=== PATIENT | female | born 1995 | race Hispanic/Latino ===

== ENCOUNTER 2017-03-09 17:38 | Emergency (ER) | payer BC ==
[2017-03-09 18:17] LABS: Bilirubin Negative (Negative); Blood, Urine Small (Negative); Glucose, Urine (Dipstick) Negative (Negative); Ketone, Urine Negative (Negative); Nitrite Negative (Negative); Protein, Urine (Dipstick) Negative (Neg-Trace)
[2017-03-09 18:19] LABS: Bacteria/HPF 1+ HPF (None Seen); Hyaline Casts/LPF 0-3 HYALINE CAST LPF (0-3 Hyaline); Squamous Epithelial 0-3 HPF (0-3)
[2017-03-12 11:09] LABS: GC - Neisseria gonorrhoeae NAA Negative (Negative)
== END 2017-03-09 19:12 | disposition home or self-care (01) ==
LOC: ERS 17:38
DX: N39.0 Urinary tract infection, site not specified (principal)
CPT/HCPCS: 81003; 81015; 81025; 87491; 87591; 99283

== ENCOUNTER 2017-03-12 09:47 | Emergency (ER) | payer BC, SELFPAY ==
[2017-03-12 11:51] LABS: Bacteria/HPF None Seen HPF (None Seen); Hyaline Casts/LPF 0-3 HYALINE CAST LPF (0-3 Hyaline); RBC/HPF 0-3 HPF (0-3); Squamous Epithelial None Seen HPF (0-3); WBC/HPF None Seen HPF (0-3)
[2017-03-12 11:55] LABS: Bilirubin Unable to Interpret (Negative); Blood, Urine Negative (Negative); Glucose, Urine (Dipstick) Unable to Interpret mg/dL (Negative); Ketone, Urine Unable to Interpret mg/dL (Negative); Nitrite Unable to Interpret (Negative); Urobilinogen UNABLE TO INTERPRET mg/dL (0.2-1.0)
[2017-03-12 11:59] LABS: Protein, Urine (Dipstick) Negative (Neg-Trace)
[2017-03-12 12:02] LABS: Yeast-All Forms None Seen HPF (None Seen)
[2017-03-12] MEDS ORDERED: cefTRIAXone\\ROCEPHIN 250 MG VIAL ONE (14:55)
[2017-03-12] MEDS ORDERED: Lidocaine 1% PF 5 ML VIAL ONE (14:55)
[2017-03-12] MEDS ORDERED: Azithromycin 250 MG TAB ONE (14:55)
== END 2017-03-12 15:25 | disposition home or self-care (01) ==
LOC: ERS 09:47
DX: A60.04 Herpesviral vulvovaginitis (principal); N73.9 Female pelvic inflammatory disease, unspecified
CPT/HCPCS: 81003; 81015; 81025; 87480; 87491; 87510; 87591; 87660; 96372; J0696; J2001